=== PATIENT | female | born 1985 | race Caucasian/White ===

== ENCOUNTER 2020-08-12 15:13 | Emergency (ER) | payer OTHER ==
--- NOTE | 2020-08-12 15:34 | Emergency Department Note ---
History of Present Illnes History of Present Illness Chief Complaint: Abdominal Complaints History of Present Illness This is a 35 year old female Chief Complaint Comment PATIENT IN FROM HOME WITH COMPLAINTS OF DRAINAGE FROM SITE; STATES SHE HAD A 08/03/20 AT [facility], AND LAST NIGHT SHE WOKE WITH CLEAR, PINKISH DRAINAGE FROM CSECTION SITE. PATIENT APPEARS IN NO DISTRESS, RESP EVEN AND NONLABORED, RATES PAIN 1/10. Historian: Patient Arrival Mode: Car Easter Bunny Required: No Onset (how long ago): day(s) Location: Lower abdomen Quality: drainage Radiation: Reports non-radiation Severity: mild Onset quality: gradual Duration (how long): day(s) Timing of current episode: intermittent Progression: unchanged Chronicity: new Context: Reports recent surgery (C section); Denies recent illness Relieving factors: none Exacerbating factors: none Associated symptoms: Reports denies other symptoms Treatments prior to arrival: none Past Medical/Family History Physician Review I have reviewed the patient's past medical and family history. Any updates have been documented here. Past Medical History Recent Fever: No Clinical Suspicion of Infectio: No New/Unexplained Change in Ment: No Past Medical History: None Past Surgical History: Social History Physically hurt or threatened: No Review of Systems Review of Systems Constitutional: Reports no symptoms EENTM: Reports no symptoms Cardiovascular: Reports no symptoms Respiratory: Reports no symptoms Gastrointestinal: Reports as per HPI Genitourinary: Reports no symptoms Musculoskeletal: Reports no symptoms Integumentary: Reports no symptoms Neurological: Reports no symptoms Psychological: Reports no symptoms Endocrine: Reports no symptoms Hematological/Lymphatic: Reports no symptoms Physical Exam Related Data Allergies: Coded Allergies: No Known Allergies (Unverified , 08/12/20) Triage Vital Signs Vital Signs Date Time Temp Pulse Resp B/P (MAP) Pulse Ox O2 Delivery O2 Flow Rate FiO2 08/12/20 15:19 99 20 184/88 100 Room Air 08/12/20 15:23 98.1 Vital signs reviewed: Yes Physical Exam CONSTITUTIONAL Constitutional: Present well-developed, Present well-nourished HENT HENT: Present normocephalic, Present atraumatic, Present oropharynx clear/moist, Present nose normal HENT L/R: Present left ext ear normal, Present right ext ear normal EYES Eyes: Reports PERRL, Reports conjunctivae normal NECK Neck: Present ROM normal PULMONARY Pulmonary: Present effort normal, Present breath sounds normal CARDIOVASCULAR Cardiovascular: Present regular rhythm, Present heart sounds normal, Present capillary refill normal, Present normal rate GASTROINTESTINAL Abdominal: Present soft, Present nontender, Present bowel sounds normal, Present other (post surgical scar to lower abdomen. No drainage noted) GENITOURINARY Genitourinary: Present exam deferred SKIN Skin: Present warm, Present dry MUSCULOSKELETAL Musculoskeletal: Present ROM normal NEUROLOGICAL Neurological: Present alert, Present oriented x 3, Present no gross motor or sensory deficits PSYCHOLOGICAL Psychological: Present mood/affect normal, Present judgement normal Results Laboratory Lab results reviewed: Yes Imaging Imaging results reviewed: Yes Assessment & Plan Medical Decision Making MDM 35 y.o F presents for drainage from scan. Exam shows no erythema or signs of infection. Labs and CT ordered. Labs show Na 123 and UTI on UA but patient still has some mild discharge from vagina which makes it difficult to interpret. Patient wishes to leave before CT. I discussed with her that I highly recommend she stay in the hospital 2/2 her Na. Discussed that she may have a seizure or as a result. She states understanding still wishes to leave. Rx Keflex given and strict return precautions given. She states she will f/u w/ her OBGYN. Stable at DC with no symptoms of symptomatic hyponatremia. Assessment & Plan Final Impression: (1) Hyponatremia (2) UTI (urinary tract infection) Depart Disposition: HOME, SELF-CARE Last Vital Signs Date Time Temp Pulse Resp B/P (MAP) Pulse Ox O2 Delivery O2 Flow Rate FiO2 08/12/20 15:23 98.1 92 20 184/88 100 Room Air Home Meds Active Scripts Cephalexin Monohydrate (KEFLEX) 500 Mg Capsule, 500 MG PO BID for 7 Days, #14 TAB 0 Refills Prov:VIKASH PAYNE MD 08/12/20 VIKASH PAYNE MD Aug 12, 2020 15:34
[2020-08-12 15:44] LABS: BASOPHILS % 0.4 % (0.0-1.0); EOSINOPHILS # (AUTO) 0.1 (0.0-0.4); EOSINOPHILS % 1.3 % (0.0-6.0); HEMATOCRIT 33.8 % (34.2-44.1); HEMOGLOBIN 11.3 g/dL (12.0-16.0); LYMPHOCYTES # (AUTO) 1.4 (1.0-3.2); LYMPHOCYTES % 14.7 % (18.0-39.1); MEAN CORPUSCULAR HEMOGLOBIN 29.4 pg (28-32); MEAN CORPUSCULAR HGB CONC 33.4 g/dL (31-35); MONOCYTES # (AUTO) 0.8 (0.2-0.8); MONOCYTES % 8.4 % (4.4-11.3); NEUTROPHILS % 74.9 % (38.7-80.0); PLATELET COUNT 292 x10e3/uL (140-360); RED BLOOD COUNT 3.84 x10e6/uL (3.6-5.1); RED CELL DISTRIBUTION WIDTH 12.9 % (11.7-14.4)
[2020-08-12 16:02] LABS: ALANINE AMINOTRANSFERASE 9 IU/L (0-55); ALBUMIN 2.7 g/dL (3.5-5.0); ALBUMIN/GLOBULIN RATIO 0.7 (0.8-2.0); ALKALINE PHOSPHATASE 77 IU/L (40-150); ANION GAP 12.6 mmol/L (8-16); BLOOD UREA NITROGEN 14 mg/dL (7-26); BUN/CREATININE RATIO 20 (6-25); CALCIUM 8.6 mg/dL (8.4-10.2); CARBON DIOXIDE 24 mmol/L (22-29); CHLORIDE 90 mmol/L (98-107); CREATININE, SERUM 0.69 mg/dL (0.57-1.11); EST GLOMERULAR FILTRATION RATE > 60 ML/MIN (60-); GLUCOSE 110 mg/dL (74-118); POTASSIUM 3.6 mmol/L (3.5-5.1); SODIUM 123 mmol/L (136-145)
[2020-08-12 16:15] LABS: COLOR,URINE PINK (YELLOW)
[2020-08-12 16:16] LABS: BILIRUBIN,URINE SMALL (NEGATIVE); CLARITY,URINE SL CLOUDY (CLEAR); KETONES,URINE TRACE (NEGATIVE); LEUKOCYTE ESTERASE ,URINE SMALL (NEGATIVE); NITRITE,URINE NEGATIVE (NEGATIVE); PROTEIN,URINE DIPSTICK 2+ (NEGATIVE); URINE UROBILINOGEN 2 mg/dL (0.2 - 1)
[2020-08-12 16:23] LABS: BACTERIA,URINE MODERATE /HPF; EPITHELIAL CELLS,URINE MODERATE /LPF; RBC,URINE 21-50 /HPF (0-5)
[2020-08-12 16:24] LABS: YEAST,URINE RARE
[2020-08-12] MEDS ORDERED: KEFLEX500 MG PO (16:45)
== END 2020-08-12 16:57 | disposition home or self-care (01) ==
LOC: ER 15:17
DX: E87.1 Hypo-osmolality and hyponatremia (principal); N39.0 Urinary tract infection, site not specified; R10.30 Lower abdominal pain, unspecified
CPT/HCPCS: 36415; 80053; 81001; 84702; 85025; 99284

== ENCOUNTER 2021-06-22 15:44 | Emergency (ER) | payer OTHER ==
[~2021-06-22 15:44] MED LIST: KEFLEX500 MG PO
[2021-06-22] MEDS ORDERED: DOXYCYCLINE HY100 MG PO (16:56)
== END 2021-06-22 17:00 | disposition home or self-care (01) ==
LOC: ER 16:55
DX: M25.812 Other specified joint disorders, left shoulder (principal); L72.8 Other follicular cysts of the skin and subcutaneous tissue
CPT/HCPCS: 99282